=== PATIENT | male | born 1955 | race Caucasian/White ===

== ENCOUNTER 2025-01-04 08:13 | Emergency (ER) | payer MEDICARE, OTHER ==
[~2025-01-04] VITALS: Ht 177.8 cm; Wt 84.0 kg
[~2025-01-04 08:13] MED LIST: AMLO-905 PO; CLON-866 MT; ESCI10TA MT; FINA5TAB11 PO; KEPP500 MT; LOSA100T33 PO; POTA8CAP20 MT; TAMS-54 PO
[2025-01-04 08:15] VITALS: O2SAT 95
[2025-01-04] MEDS: SODIUM CHLORIDE 0.9% 1,000 ML IV ONE (09:16)
[2025-01-04] MEDS: CLONAZEPAM 1MG TABLET PO ONE (09:38)
[2025-01-04] MEDS: LEVETIRACETAM 1000MG PREMIX 100 ML IV SCH (09:52)
[2025-01-04 10:14] LABS: BASOPHILS % 0.2 % (0.0-2.0); EOSINOPHILS % 0.8 % (0.0-5.0); HEMATOCRIT. 38.3 % (42.0-52.0); HEMOGLOBIN. 12.8 g/dL (14.0-18.0); LYMPHOCYTES % 7.7 % (20.0-50.0); MEAN PLATELET VOLUME 6.7 fl (7.4-10.4); MONOCYTES % 5.0 % (2.0-8.0); NEUTROPHILS % 86.3 % (40.0-76.0); PLATELET 199 x1000/uL (130-400); RED BLOOD CELL COUNT 4.17 mill/uL (4.7-6.1); RED CELL DISTRIBUTION WIDTH 13.5 % (11.6-14.6)
[2025-01-04 10:27] LABS: CREATININE 1.3 mg/dL (0.6-1.3); UREA NITROGEN BLOOD 14 mg/dL (9-23)
[2025-01-04 10:28] LABS: ETHANOL BLOOD < 10 mg/dL (<10)
[2025-01-04] MEDS ORDERED: ACETAMINOPHEN WITH CODEINE 300/30MG TABLET PO ONE (13:30)
[2025-01-04 14:00] VITALS: TEMP 36.9; O2SAT 98
[2025-01-04 14:02] VITALS: BP 152/82; PULSE 70; RESP 17
[2025-01-04] MEDS: CLONAZEPAM 0.5MG TABLET PO ONE (14:02)
[2025-01-04] MEDS: ACETAMINOPHEN WITH CODEINE 300/30MG TABLET PO ONE (14:02)
== END 2025-01-04 14:24 | disposition home or self-care (01) ==
LOC: ER 08:13
DX: R56.9 Unspecified convulsions (principal); I25.10 Atherosclerotic heart disease of native coronary artery without angina pectoris; I10 Essential (primary) hypertension; Z79.899 Other long term (current) drug therapy; Z95.0 Presence of cardiac pacemaker; Z88.5 Allergy status to narcotic agent; Z88.0 Allergy status to penicillin
CPT/HCPCS: 80048; 80320; 85025; 36415; 70450; 93005; 96365; 96366; 99285; J1953; J7030; A4606; G0480